=== PATIENT | male | born 1965 | race Caucasian/White ===

== ENCOUNTER 2017-08-06 13:45 | Emergency (ER) | payer OTHER ==
--- NOTE | 2017-08-06 14:48 | EDM.PDOC ---
ED HPI GENERAL MEDICAL PROBLEM - General Chief Complaint: ENT Problem Stated Complaint: ENT Time Seen by Provider: 08/06/17 13:46 Source of Information: Reports: Patient, Family History Limitations: Reports: No Limitations - History of Present Illness INITIAL COMMENTS - FREE TEXT/NARRATIVE: Patient has had a history of a ENT procedure for sleep apnea and asthma 15 years ago. He is still slated to have another sleep study done as him and his both believe he probably still has sleep apnea. This may be worsening over the years. The patient does not have any fever or chills. He does have a mass about his sub-mandibular area on the right side. He felt it yesterday and it has grown since then and it feels more difficult for him to swallow. Breathing is not an issue. He was able to sleep last night on his back without being in a recliner. I did do a CT scan. His CRP is slightly elevated. His white blood count is normal. There is no reason to give him antibiotics. I think if we continue with conservative measures. The patient is to return if he has any further issues or if he starts having a fever. He may have to see a ENT specialist. Patient understood I did show him pictures of his CAT scan. I did wait for the formal results. Otherwise the mono test was negative. Strep test was negative. Strep culture is pending. Otherwise patient does have a generous habitus. Onset: Other (yesterday) Location: Reports: Neck Quality: Reports: Pressure Severity: Moderate Improves with: Reports: None Context: Denies: Sick Contact, Trauma Associated Symptoms: Reports: Cough, Other (Patient does not believe he has any correction or debris sliding down the back of his throat. No productive cough.) Right Neck Pain Score (Numeric/FACES): 5 - Related Data Allergies Allergy/AdvReac Type Severity Reaction Status Date / Time No Known Allergies Allergy Verified 08/06/17 14:01 Home Meds: Home Meds . [No Known Home Meds] 08/06/17 [History] Past Medical History Cardiovascular History: Reports: Hypertension Respiratory History: Reports: Sleep Apnea Musculoskeletal History: Reports: Other (See Below) Other Musculoskeletal History: bicep tear - Past Surgical History GI Surgical History: Reports: Appendectomy Social & Family History - Tobacco Use Smoking Status *Q: Never Smoker ED ROS ENT - Review of Systems Review Of Systems: ROS reveals no pertinent complaints other than HPI. ED EXAM, ENT - Physical Exam Exam: See Below Exam Limited By: No Limitations General Appearance: Alert, Mild Distress, Moderate Distress Nose: Normal Inspection, Normal Mucousa Mouth/Throat: Other (Unable to see the posterior pharynx despite my best efforts with a tongue depressor. Patient has a very large neck most likely 19 or 20. Mallampati classification four) Head: Other (The patient does have asymmetry as there is a submandibular mass without any communication to the pharynx. This is on the right side and is pushing towards the left.) Respiratory/Chest: No Respiratory Distress, Lungs Clear Cardiovascular: Normal Peripheral Pulses, Regular Rate, Rhythm Neurological: Alert, Oriented, Normal Gait Course - Vital Signs Last Recorded V/S: Last Vital Signs Temp 36.8 C 08/06/17 13:50 Pulse 107 H 08/06/17 13:50 Resp 16 08/06/17 13:50 BP 163/104 H 08/06/17 13:50 Pulse Ox 94 L 08/06/17 13:50 - Orders/Labs/Meds Orders: Active Orders 24 hr Category Date Time Status Soft Tissue Neck w Cont [CT] Stat Exams 08/06/17 14:02 Taken CULTURE STREP A CONFIRMATION [] Stat Lab 08/06/17 14:42 Results STREP SCRN A RAPID W CULT CONF [] Stat Lab 08/06/17 14:42 Results Labs: Laboratory Tests 08/06/17 08/06/17 Range/Units 14:50 14:50 WBC 6.2 (4.0-10.0) x10^3/uL RBC 4.88 (4.5-6.0) x10^6/uL Hgb 14.7 (14.0-18.0) g/dL Hct 42.6 (40.0-52.0) % MCV 87.3 (78.0-93.0) fL MCH 30.1 (26.0-32.0) pg MCHC 34.5 (32.0-36.0) g/dL RDW Coeff of Sergio 12.7 (10.0-15.0) % Plt Count 203 (130-400) x10^3/uL Add Manual Diff Yes Neutrophils % (Manual) 72 (50-80) % Band Neutrophils % 4 (0-6) % Lymphocytes % (Manual) 15 L (25-50) % Monocytes % (Manual) 5 (2-11) % Eosinophils % (Manual) 3 (0-4) % Basophils % (Manual) 1 (0-1) % Platelet Estimate Adequate Sodium 139 (136-145) mmol/L Potassium 4.0 (3.5-5.1) mmol/L Chloride 103 (98-107) mmol/L Carbon Dioxide 25 (21-32) mmol/L BUN 10 (7-18) mg/dL Creatinine 1.0 (0.70-1.30) mg/dL Est Cr Clr Drug Dosing TNP Estimated GFR (MDRD) > 60 Glucose 104 (74-106) mg/dL Calcium 8.3 L (8.5-10.1) mg/dL Corrected Calcium 8.70 (8.5-10.1) mg/dL Total Bilirubin 0.5 (0.2-1.0) mg/dL AST 29 (15-37) U/L ALT 53 (16-63) U/L Alkaline Phosphatase 97 (46-116) U/L C-Reactive Protein 1.0 H (<=0.9) mg/dL Total Protein 6.9 (6.4-8.2) g/dL Albumin 3.5 (3.4-5.0) g/dL Globulin 3.4 Albumin/Globulin Ratio 1.03 Monoscreen Negative (NEGATIVE) Departure - Departure Time of Disposition: 15:45 Disposition: Home, Self-Care 01 Condition: Good Clinical Impression: Submandibular gland inflammation - Discharge Information Instructions: Parotitis, [id number] Referrals: Ben Hagen MD [Primary Care Provider] - Forms: ED Department Discharge Additional Instructions: CT scan showed submandibular Sialadenitis. No signs of infection and no stone seen obstructing the gland. Massage of the area is recommended. NSAIDS may help. Heating pad. Should resolve in the next few days. If not then see a Otolarynologist. Your white blood count is negative. Strep is negative. Strep culture is pending. [place] spot was negative. I don't believe you will need antibiotics at this time. You may have to sleep in a recliner or elevate the head of the bed. - My Orders Last 24 Hours: My Active Orders 08/06/17 14:02 Soft Tissue Neck w Cont [CT] Stat 08/06/17 14:42 CULTURE STREP A CONFIRMATION [RM] Stat STREP SCRN A RAPID W CULT CONF [RM] Stat - Assessment/Plan Last 24 Hours: My Active Orders 08/06/17 14:02 Soft Tissue Neck w Cont [CT] Stat 08/06/17 14:42 CULTURE STREP A CONFIRMATION [RM] Stat STREP SCRN A RAPID W CULT CONF [RM] Stat
[2017-08-06 15:19] LABS: CHLORIDE,CL 103 mmol/L (98-107); SODIUM,NA 139 mmol/L (136-145)
== END 2017-08-06 15:55 | disposition home or self-care (01) ==
LOC: VM.ED 13:45
DX: I88.9 Nonspecific lymphadenitis, unspecified (principal); I10 Essential (primary) hypertension
CPT/HCPCS: 36415; 70491; 80053; 85025; 86140; 86308; 87081; 87880; 99284

== ENCOUNTER 2020-02-29 21:18 | Emergency (ER) | payer BC, OTHER ==
[2020-02-29] MEDS ORDERED: Diazepam 5 MG Tab PO ONE (21:35)
[2020-02-29] MEDS ORDERED: Ketorolac 60 MG/2 ML SDV IM ONE (21:35)
--- NOTE | 2020-02-29 22:04 | EDM.PDOC ---
ED HPI GENERAL MEDICAL PROBLEM - General Stated Complaint: ER Time Seen by Provider: 02/29/20 21:28 Source of Information: Reports: Patient - History of Present Illness INITIAL COMMENTS - FREE TEXT/NARRATIVE: Arie is a 54 y/o male who comes to the ER with pain in his right flank region. He got out of the shower and in doing so he pulled a muscle and felt a very sharp constant pain and he could hardly take a deep breath or move because of the pain. He was riding on the core cleaner all day. He did not take any meds at home and when his saw how much pain he was in,she brought him to the ER. - Related Data Allergies Allergy/AdvReac Type Severity Reaction Status Date / Time No Known Allergies Allergy Verified 10/25/17 08:46 Home Meds: Home Meds tiZANidine [Zanaflex] 4 mg PO TID 30 Days #120 tablet 09/27/17 [Rx] Hydrocodone/Acetaminophen [Hydrocodon-Acetaminophen 5-325] 1 each PO Q6HR PRN 5 Days #24 tablet 10/11/17 [Rx] Cyclobenzaprine [Flexeril] 10 mg PO TID PRN #30 tab 02/29/20 [Rx] diazePAM [Valium] 10 mg PO TID PRN 3 Days #10 tab 02/29/20 [Rx] Past Medical History Cardiovascular History: Reports: Hypertension Respiratory History: Reports: Sleep Apnea Musculoskeletal History: Reports: Other (See Below) Other Musculoskeletal History: bicep tear Endocrine/Metabolic History: Reports: None - Past Surgical History HEENT Surgical History: Reports: Tonsillectomy Cardiovascular Surgical History: Reports: None Respiratory Surgical History: Reports: None GI Surgical History: Reports: Appendectomy Endocrine Surgical History: Reports: None Musculoskeletal Surgical History: Reports: Other (See Below) Other Musculoskeletal Surgeries/Procedures:: previous BILLY 8 years ago Social & Family History - Family History Family Medical History: Noncontributory - Caffeine Use Caffeine Use: Reports: Coffee - Living Situation & Occupation Living situation: Reports: , with Spouse Occupation: Employed ([employer] worker) Review of Systems - Review of Systems Review Of Systems: See Below Constitutional: Reports: No Symptoms Eyes: Reports: No Symptoms Ears: Reports: No Symptoms Nose: Reports: No Symptoms Mouth/Throat: Reports: No Symptoms Respiratory: Reports: No Symptoms GI/Abdominal: Reports: No Symptoms Genitourinary: Reports: No Symptoms Musculoskeletal: Reports: Back Pain, Muscle Pain, Muscle Stiffness Skin: Reports: No Symptoms Neurological: Reports: No Symptoms Psychiatric: Reports: No Symptoms ED EXAM, GENERAL - Physical Exam Exam: See Below Exam Limited By: No Limitations General Appearance: Alert, WD/WN, No Apparent Distress (Adult male) Ears: Hearing Grossly Normal Nose: Normal Inspection Throat/Mouth: Normal Lips, Normal Voice Head: Atraumatic, Normocephalic Neck: Normal Inspection Respiratory/Chest: No Respiratory Distress, Lungs Clear, Chest Non-Tender Cardiovascular: Normal Peripheral Pulses, Regular Rate, Rhythm, No Murmur GI/Abdominal: Normal Bowel Sounds, Soft, Non-Tender (Male) Exam: Deferred Rectal (Males) Exam: Deferred Back Exam: Muscle Spasm (right upper thoracic region) Extremities: Normal Inspection, Normal Range of Motion, Normal Capillary Refill Neurological: Alert, Oriented, CN II-XII Intact Psychiatric: Normal Affect, Normal Mood Skin Exam: Warm, Dry, Intact, Normal Color, No Rash Lymphatic: No Adenopathy Course - Vital Signs Text/Narrative:: The patient was seen by the IT RISK ANALYST. He was given Toradol 60mg IM and Valium 10mg po. Patient felt better. He was given discharge medications and sent home in stable condition. - Orders/Labs/Meds Meds: Medications Discontinued Medications Generic Name Dose Route Start Last Admin Trade Name Freq PRN Reason Stop Dose Admin Diazepam 10 mg 02/29/20 21:35 Valium. PO 02/29/20 21:36 ONETIME ONE Ketorolac Tromethamine 60 mg 02/29/20 21:35 Toradol IM 02/29/20 21:36 ONETIME ONE Departure - Departure Time of Disposition: 22:12 Disposition: Home, Self-Care 01 Condition: Good Clinical Impression: Muscle spasm of back - Discharge Information *PRESCRIPTION DRUG MONITORING PROGRAM REVIEWED*: Not Applicable *COPY OF PRESCRIPTION DRUG MONITORING REPORT IN PATIENT KAT: Not Applicable Prescriptions: Cyclobenzaprine [Flexeril] 10 mg PO TID PRN #30 tab PRN Reason: Muscle Spasm diazePAM [Valium] 10 mg PO TID PRN 3 Days #10 tab PRN Reason: Muscle Spasm Instructions: Muscle Cramps and Spasms Referrals: PCP,None [Primary Care Provider] - Additional Instructions: -Ibuprofen 200mg 3 tablets oral every 6 hours for the next 48 hours then every 6 hours as needed (Use OTC meds) -Diazepam 10mg oral 3x a day as needed for sever muscle spasms #10(Rx) -Cyclobenzaprine 10 mg oral 3x day for muscle spasms #4(ER) #30(Rx) -Apply ice as needed -Rest. Increase your activity as you are able. -Follow up with your PCP if your symptoms are not better. You may consider a chiropractic treatment of a massage if your symptoms are persisting. -Return to the ER as needed for any concerns.
[2020-02-29] MEDS ORDERED: Take Home: Cyclobenzaprine 10 MG Tab, 4 Tab Pack PO ONE (22:19)
== END 2020-02-29 22:27 | disposition home or self-care (01) ==
LOC: VM.ED 21:18
DX: M62.830 Muscle spasm of back (principal); I10 Essential (primary) hypertension; Z79.899 Other long term (current) drug therapy
CPT/HCPCS: 96372; 99283; 99284; A9270; J1885

== ENCOUNTER 2020-03-04 14:38 | Emergency (ER) | payer BC ==
[2020-03-04] MEDS ORDERED: Sodium Chloride 0.9% 10 ML Syringe FLUSH PRN (14:51)
[2020-03-04] MEDS ORDERED: Sodium Chloride 0.9% 1,000 ML IV ONE (14:52)
[2020-03-04] MEDS ORDERED: HYDROmorphone 1 MG/ML Syringe IVPUSH ONE (14:53)
[2020-03-04 15:22] LABS: CHLORIDE,CL 102 mmol/L (98-107); SODIUM,NA 138 mmol/L (136-145)
[2020-03-04 15:25] LABS: ANION GAP 9.9 mmol/L (10-20)
[2020-03-04] MEDS ORDERED: Acetaminophen/HYDROcodone 325-10 MG Tab PO ONE (16:49)
--- NOTE | 2020-03-04 17:56 | CR ---
[id number] RAD/RAD Chest PA And Lateral EXAM: RAD Chest PA And Lateral INDICATION: RIGHT-SIDED POSTERIOR CHEST PAIN. COMPARISON: None. DISCUSSION: Cardiomediastinal silhouette is normal in size and contour. No infiltrate, effusion, pneumothorax, or edema. IMPRESSION: No significant cardiopulmonary abnormality. Narciso Girard DO 03/04/20 [phone] Thank you for allowing us to participate in the care of your patient.
--- NOTE | 2020-03-04 17:58 | CR ---
[id number] RAD/RAD Thoracic Spine 2V EXAM: AP AND LATERAL THORACIC SPINE. INDICATION: Mid back pain. COMPARISON: No previous similar exam is available for comparison. FINDINGS: No fracture or subluxation is seen. There is preservation of height of disc spaces and vertebrae. The pedicles are intact. Mild multilevel spondylosis. IMPRESSION: No fracture or subluxation. Narciso Girard DO 03/04/20 [id number] Thank you for allowing us to participate in the care of your patient.
[2020-03-04] MEDS ORDERED: Take Home: predniSONE 20 MG, 2 Tab Pack PO ONE (18:03)
[2020-03-04] MEDS ORDERED: Take Home: Acetaminophen/HYDROcodone 325-10 MG, 5 Tab Pack PO ONE (18:03)
--- NOTE | 2020-03-04 19:11 | EDM.PDOC ---
ED HPI GENERAL MEDICAL PROBLEM - General Chief Complaint: Flank Pain Stated Complaint: Flank Pain Time Seen by Provider: 03/04/20 14:45 Source of Information: Reports: Patient History Limitations: Reports: No Limitations - History of Present Illness INITIAL COMMENTS - FREE TEXT/NARRATIVE: Pt. presents to ER with complaints of R sided lower rib/side pain. Pt. states that he has been experiencing this for several days. He was seen in clinic for the same this past week by Bobbi Galvez NP and was felt to be musculoskeletal in nature. He states that the discomfort is with with movement. Denies any radiation into his groin. It is not respirophasic in nature. Pt. denies any trauma to the area. No recent falls in injury. Denies any substernal chest pain. No shortness of breath. No hemoptysis. Denies any fever or chills. No cough, productive or otherwise. Onset: Today Onset Date: 03/04/20 Location: Reports: Chest, Back Quality: Reports: Sharp, Stabbing - Related Data Allergies Allergy/AdvReac Type Severity Reaction Status Date / Time No Known Allergies Allergy Verified 02/29/20 22:16 Home Meds: Home Meds Cyclobenzaprine [Flexeril] 10 mg PO TID PRN #30 tab 02/29/20 [Rx] diazePAM [Valium] 10 mg PO TID PRN 3 Days #10 tab 02/29/20 [Rx] Past Medical History Cardiovascular History: Reports: Hypertension Respiratory History: Reports: Sleep Apnea Musculoskeletal History: Reports: Other (See Below) Other Musculoskeletal History: bicep tear Endocrine/Metabolic History: Reports: None - Past Surgical History HEENT Surgical History: Reports: Tonsillectomy Cardiovascular Surgical History: Reports: None Respiratory Surgical History: Reports: None GI Surgical History: Reports: Appendectomy Endocrine Surgical History: Reports: None Musculoskeletal Surgical History: Reports: Other (See Below) Other Musculoskeletal Surgeries/Procedures:: previous BILLY 8 years ago Social & Family History - Family History Family Medical History: Noncontributory - Caffeine Use Caffeine Use: Reports: Coffee - Living Situation & Occupation Living situation: Reports: , with Spouse Occupation: Employed ([employer] worker) ED ROS GENERAL - Review of Systems Review Of Systems: See Below Constitutional: Reports: No Symptoms HEENT: Reports: No Symptoms Respiratory: Reports: No Symptoms Cardiovascular: Reports: No Symptoms Endocrine: Reports: No Symptoms GI/Abdominal: Reports: No Symptoms : Reports: No Symptoms Musculoskeletal: Reports: Back Pain Skin: Reports: No Symptoms Neurological: Reports: No Symptoms Psychiatric: Reports: No Symptoms Hematologic/Lymphatic: Reports: No Symptoms Immunologic: Reports: No Symptoms ED EXAM, GENERAL - Physical Exam Exam: See Below Exam Limited By: No Limitations General Appearance: Alert, WD/WN, No Apparent Distress Neck: Normal Inspection, Full Range of Motion Respiratory/Chest: No Respiratory Distress, Lungs Clear, Normal Breath Sounds, No Accessory Muscle Use, Chest Non-Tender Cardiovascular: Normal Peripheral Pulses, Regular Rate, Rhythm, No Edema, No Gallop, No JVD, No Murmur, No Rub Peripheral Pulses: 4+: Radial (L) GI/Abdominal: Soft, Non-Tender, No Mass (Male) Exam: Deferred Rectal (Males) Exam: Deferred Back Exam: Decreased Range of Motion, Other (pain with lateral bending, toward L more than R. Minor increase in pain with extension and flexion of the spine. No erythema or trauma noted. No ecchymosis. I was not able to illicit increased pain with palpation of the area. It is localized in a very small area of the back/flank.) Extremities: Normal Inspection, Normal Range of Motion, Non-Tender, No Pedal Ed amy, Normal Capillary Refill Neurological: Alert, Oriented, CN II-XII Intact, Normal Cognition, Normal Gait, Normal Reflexes, No Motor/Sensory Deficits Psychiatric: Normal Affect, Normal Mood Skin Exam: Warm, Dry, Intact, Normal Color, No Rash Lymphatic: No Adenopathy Course - Orders/Labs/Meds Orders: Active Orders 24 hr Category Date Time Status Sodium Chloride 0.9% [Saline Flush] Med 03/04/20 14:51 Active 10 ml FLUSH ASDIRECTED PRN Peripheral IV Insertion Adult [OM.PC] Routine Oth 03/04/20 14:52 Ordered Medication Orders Sodium Chloride (Saline Flush) 10 ml FLUSH ASDIRECTED PRN PRN Reason: Keep Vein Open Last Admin: 03/04/20 14:55 Dose: 10 ml Documented by: LIMA Labs: Laboratory Tests 03/04/20 03/04/20 03/04/20 Range/Units 14:55 14:55 16:35 WBC 6.2 (4.0-10.0) x10^3/uL RBC 5.30 (4.5-6.0) x10^6/uL Hgb 16.2 D (14.0-18.0) g/dL Hct 47.0 (40.0-52.0) % MCV 88.7 (78.0-93.0) fL MCH 30.6 (26.0-32.0) pg MCHC 34.5 (32.0-36.0) g/dL RDW Coeff of Sergio 12.7 (10.0-15.0) % Plt Count 244 (130-400) x10^3/uL Add Manual Diff Yes Neutrophils % (Manual) 61 (50-80) % Band Neutrophils % 2 (0-6) % Lymphocytes % (Manual) 23 L (25-50) % Monocytes % (Manual) 9 (2-11) % Eosinophils % (Manual) 2 (0-4) % Metamyelocytes % 2 H (0) % Myelocytes % 1 H (0) % Platelet Estimate Adequate Sodium 138 (136-145) mmol/L Potassium 3.9 (3.5-5.1) mmol/L Chloride 102 (98-107) mmol/L Carbon Dioxide 30 (21-32) mmol/L Anion Gap 9.9 L (10-20) mmol/L BUN 13 (7-18) mg/dL Creatinine 1.0 (0.70-1.30) mg/dL Est Cr Clr Drug Dosing TNP Estimated GFR (MDRD) > 60 Glucose 139 H (74-106) mg/dL Calcium 8.6 (8.5-10.1) mg/dL Corrected Calcium 8.60 (8.5-10.1) mg/dL Total Bilirubin 0.7 (0.2-1.0) mg/dL AST 35 (15-37) U/L ALT 69 H (16-63) U/L Alkaline Phosphatase 99 (46-116) U/L C-Reactive Protein 0.9 (<=0.9) mg/dL Total Protein 7.7 (6.4-8.2) g/dL Albumin 4.0 (3.4-5.0) g/dL Globulin 3.7 Albumin/Globulin Ratio 1.08 Urine Color Dark yellow H (YELLOW) Urine Appearance Slightly cloudy H (CLEAR) Urine pH 5.5 (5.0-8.0) Ur Specific [place] >=1.030 Urine Protein Negative (NEGATIVE) mg/dL Urine Glucose (UA) Negative (NEGATIVE) mg/dL Urine Ketones Negative (NEGATIVE) mg/dL Urine Occult Blood Negative (NEGATIVE) Urine Nitrite Negative (NEGATIVE) Urine Bilirubin Negative (NEGATIVE) Urine Urobilinogen 1.0 (0.2) EU/dL Ur Leukocyte Esterase Negative (NEGATIVE) Meds: Medications Generic Name Dose Route Start Last Admin Trade Name Freq PRN Reason Stop Dose Admin Sodium Chloride 10 ml 03/04/20 14:51 03/04/20 14:55 Saline Flush FLUSH 10 ml ASDIRECTED PRN Administration Keep Vein Open Discontinued Medications Generic Name Dose Route Start Last Admin Trade Name Freq PRN Reason Stop Dose Admin Hydrocodone Bitart/Acetaminophen 1 tab 03/04/20 16:49 03/04/20 16:58 [place] 325-10 Mg PO 03/04/20 16:50 1 tab ONETIME ONE Administration Hydrocodone Bitart/Acetaminophen 1 packet 03/04/20 18:03 03/04/20 18:08 Take Home: Acetaminophen/Hydrocodone 325-10mg PO 03/04/20 18:04 1 packet ONETIME ONE Administration Hydromorphone HCl 1 mg 03/04/20 14:53 03/04/20 15:01 Dilaudid IVPUSH 03/04/20 14:54 1 mg ONETIME ONE Administration Sodium Chloride 1,000 mls @ 1,000 mls/hr 03/04/20 14:52 03/04/20 14:56 Normal Saline IV 03/04/20 15:51 1,000 mls/hr .BOLUS ONE Administration Prednisone 1 packet 03/04/20 18:03 03/04/20 18:08 Take Home: Prednisone 20 Mg, 2 Tab Pack PO 03/04/20 18:04 1 packet ONETIME ONE Administration - Radiology Interpretation Free Text/Narrative:: Chest xray negative for acute pathology. Thoracic plain films negative for acute pathology. Departure - Departure Time of Disposition: 18:00 Disposition: Home, Self-Care 01 Clinical Impression: Back pain - Discharge Information Instructions: Acetaminophen; Hydrocodone tablets or capsules, Prednisone tablets Referrals: Yaa Small DO [Primary Care Provider] - Forms: ED Department Discharge Additional Instructions: [place] 10/325mg 1 every 4-6 hours as needed for pain Prednisone 40mg once daily until gone Continue to use your other medications Apply heat to painful area as needed If you are still having troubles in 10-14 days, recheck in the clinic for further workup/imaging - My Orders Last 24 Hours: My Active Orders 03/04/20 14:51 Sodium Chloride 0.9% [Saline Flush] 10 ml FLUSH ASDIRECTED PRN 03/04/20 14:52 Peripheral IV Insertion Adult [OM.PC] Routine - Assessment/Plan Last 24 Hours: My Active Orders 03/04/20 14:51 Sodium Chloride 0.9% [Saline Flush] 10 ml FLUSH ASDIRECTED PRN 03/04/20 14:52 Peripheral IV Insertion Adult [OM.PC] Routine Plan: The cause of the discomfort for this patient is unclear. It appears to be musculoskeletal in nature, as the pain is exacerbated with movement, etc. Will start him on a short course of norco 10/325mg 1 tab every 4-6 hours as needed for pain. He can continue with the flexeril and valium. He was also started on a course of prednisone for 7 days total. If he is still having trouble, he should follow-up with his PCP for further work-up/imaging. All questions were answered.
== END 2020-03-04 18:14 | disposition home or self-care (01) ==
LOC: VM.ED 14:38
DX: M54.9 Dorsalgia, unspecified (principal); I10 Essential (primary) hypertension
CPT/HCPCS: 71046; 72070; 80053; 81003; 85025; 86140; 96374; 99284; A9270; J1170; J7030; J7512